=== PATIENT | female | born 1990 | race Caucasian/White ===

== ENCOUNTER 2016-05-01 14:23 | Emergency (ER) | payer MEDICAID, OTHER ==
[~2016-05-01 14:23] MED LIST: PANT20 PO; ZOFR4TAB PO
[2016-05-01 15:01] VITALS: BP 130/68; PULSE 79
[2016-05-01 15:15] VITALS: RESP 17; TEMP 99.3
[2016-05-01] MEDS ORDERED: ONDANSETRON ODT 4 MG TAB PO ONE (16:00)
[2016-05-01] MEDS ORDERED: ONDANSETRON HCL 4 MG/2 ML VIAL IV ONE (16:00)
[2016-05-01] MEDS ORDERED: LACTATED RINGER'S 1000 ML INJ 1,000 ML IV SCH (16:00)
[2016-05-01] MEDS ORDERED: PROM25TA5 PO (16:02)
[2016-05-01] MEDS ORDERED: PANT20 PO (16:03)
--- NOTE | 2016-05-01 16:03 | PD ---
HPI Chief Complaint This is a 25-year-old white female at [address] Dawkins for care presents complains of nausea vomiting today. She denies bleeding rupture the membranes or abdominal pain. heart rate is 150 Date Seen: May 01, 2016 Travel History International Travel<30 Days: No Contact w/Intl Traveler<30Days: No History of Present Illness HPI This patient is 25-year-old white female at 19 weeks sent over from reevaluation nausea vomiting today, she denies bleeding or rupture the membranes and heart tones 150 Para: 0 : 1 History Past Medical History Medical History: Denies Significant Hx Allergies-Medications (Allergen,Severity, Reaction): Coded Allergies: No Known Allergies (Unverified , 03/01/16) Home Meds Active Scripts Pantoprazole (Protonix)20 Mg Tab20 Mg PO DAILY #30 TAB Ref 0 Prov:Jed Moore MD 02/26/16 Ondansetron (Zofran)4 Mg Tab4 Mg PO Q6HR PRN (NAUSEA OR VOMITING) #20 TAB Ref 0 Prov:Deidre Brizuela DO 02/11/16 Review of Systems General / Constitutional: No: Fever, Weight Gain, Chills, Other Eyes: No: Diploplia, Blurred Vision, Visual changes, Pain, Photophobia HENT: No: Headaches, Vertigo, Lightheadedness Cardiovascular: No: Irregular Rhythm, Chest Pain or Discomfort, Palpitations, Tachycardia, Syncope, Varicosities, Edema, Cyanosis Respiratory: No: Cough, Short of Breath, Other Gastrointestinal: Nausea, Vomiting, No: Diarrhea Genitourinary: No: Decreased Urinary Output, Oliguria Musculoskeletal: No: Limited ROM, Weakness, Cramping, Edema, Pain Skin: No Rash, No Itching, No Dryness, No Lumps, No Change in Pigmentation, No Change in Nails, No Alopecia, No Lesions Neurologic: No: Weakness, Dizziness, Syncope, Focal Abnormalities, Coordination Problem, Headache, Slurred Speech, Seizures Psychiatric: No: Depression, Suicidal Ideations, Homicidal Ideation Endocrine: No: Heat Intolerance, Cold Intolerance, Polydipsia, Polyuria, Other Physical Exam Narrative GENERAL: Well-nourished, well-developed patient. SKIN: Warm and dry. HEAD: Normocephalic and atraumatic. EYES: No scleral icterus. No injection or drainage. ENT: No nasal drainage noted. Mucous membranes pink. Airway patent. NECK: Supple, trachea midline. No JVD. CARDIOVASCULAR: Regular rate and rhythm without murmurs, gallops, or rubs. RESPIRATORY: Breath sounds equal bilaterally. No accessory muscle use. BREASTS: Bilateral exam showed no masses , no retractions, no nipple discharge. ABDOMEN/GI: Abdomen soft, non-tender, bowel sounds present, no rebound, no guarding Gravid to [19-] weeks size Fundal Height: [at umbilicus-] FHT's: 150 ] EXTREMITIES: No cyanosis or edema. BACK: Nontender without obvious deformity. No CVA tenderness. NEUROLOGICAL: Awake and alert. Motor and sensory grossly within normal limits. Five out of 5 muscle strength in all muscle groups. Normal speech. Data Data Orders Vital Signs (Adult) .ON ADMISSION (05/01/16 15:05) ^ Labor Status (05/01/16 15:05) Urinalysis - C+S If Indicated (05/01/16 15:05) Lactated Ringer's 1000 Ml Inj (Lr 1000 M (05/01/16 16:00) Ondansetron Inj (Zofran Inj) (05/01/16 16:00) Ondansetron Odt (Zofran Odt) (05/01/16 16:00) MDM Interpretation(s) This patient is 19 week intrauterine with nausea and vomiting today. She is been on Protonix for this and that has helped however she is run out of medicine, she denies other problems heart tones are 150 Plan Initially our plan was to IV hydrate with IV Zofran however we've been unable to get an IV started on 2 tries. And patient states this time she feels okay she's not that nauseous she rather try oral medication that tried another IV stick so at this point we will give refill on her Protonix oral Phenergan tablets for nausea and vomiting as well as give her a dose of Zofran ODT while she's here. She'll follow-up with Dr. Dawkins for further evaluation and care Diagnosis Diagnosis: Primary Impression: Nausea and vomiting during prior to 22 weeks gestation Disposition: DISCHARGE HOME Condition: Stable Scripts Pantoprazole (Protonix)20 Mg Tab20 Mg PO DAILY #30 TAB Ref 0 Prov:Terrence Moreno II, MD 05/01/16 Promethazine (Phenergan)25 Mg Tab25 Mg PO Q6H PRN (Nausea/Vomiting) #28 TAB Ref 0 Prov:Terrence Moreno II, MD 05/01/16 Terrence Moreno II, MD May 01, 2016 16:03
== END 2016-05-01 17:00 | disposition home or self-care (01) ==
LOC: HOBED 14:23
DX: O21.0 Mild hyperemesis gravidarum (principal); Z3A.22 22 weeks gestation of pregnancy
CPT/HCPCS: 99284

== ENCOUNTER → 2016-06-19 | Emergency (ER) | payer MEDICAID ==
[~2016-06-19] VITALS: Ht 162.6 cm; Wt 94.3 kg
[~2016-06-19] MED LIST changes: +IBUP-232 PO; +LACTATED RINGER'S 1000 ML INJ 1,000 ML IV SCH; +ONDANSETRON HCL 4 MG/2 ML VIAL IV PUSH ONE; +OXYC1TAB63 PO; +PROCHLORPERAZINE INJ 10 MG/2 ML VIAL IVS ONE; +PROM25TA5 PO
--- NOTE | 2016-06-19 02:09 | PD ---
HPI Chief Complaint Lower abdominal pain Date Seen: Jun 19, 2016 Travel History International Travel<30 Days: No Contact w/Intl Traveler<30Days: No Known Affected Area: No History of Present Illness HPI This patient is 25-year-old white female at 26 weeks presents complaining of one-day history of sharp abdominal pains that are worsened with movement or sneezing coughing. Pains initially thought to be gas pains but just continue to get worse and now continuous. Also complains of some nausea but no vomiting. Patient did no medication at home for any of these problems. Denies bleeding or rupture the membranes. Baby is active heart rate tracing is within normal limits for 26 weeks, and the no regular contractions seen but there is some uterine irritability a few small irregular contractions noted Para: 0 : 1 History Past Medical History Medical History: Denies Significant Hx Social History Alcohol Use: No Tobacco Use: No Substance Abuse: No Allergies-Medications (Allergen,Severity, Reaction): Coded Allergies: No Known Allergies (Unverified , 03/01/16) Home Meds Active Scripts Pantoprazole (Protonix)20 Mg Tab20 Mg PO DAILY #30 TAB Ref 0 Prov:Terrence Moreno II, MD 05/01/16 Promethazine (Phenergan)25 Mg Tab25 Mg PO Q6H PRN (Nausea/Vomiting) #28 TAB Ref 0 Prov:Terrence Moreno II, MD 05/01/16 Ondansetron (Zofran)4 Mg Tab4 Mg PO Q6HR PRN (NAUSEA OR VOMITING) #20 TAB Ref 0 Prov:Deidre Brizuela DO 02/11/16 Review of Systems General / Constitutional: No: Fever, Weight Gain, Chills, Other Eyes: No: Diploplia, Blurred Vision, Visual changes, Pain, Photophobia HENT: No: Headaches, Vertigo, Lightheadedness Cardiovascular: No: Irregular Rhythm, Chest Pain or Discomfort, Palpitations, Tachycardia, Syncope, Varicosities, Edema, Cyanosis Respiratory: No: Cough, Short of Breath, Other Gastrointestinal: Nausea, Abdominal Pain, No: Vomiting, Diarrhea Genitourinary: No: Decreased Urinary Output, Oliguria Musculoskeletal: No: Limited ROM, Weakness, Cramping, Edema, Pain Skin: No Rash, No Itching, No Dryness, No Lumps, No Change in Pigmentation, No Change in Nails, No Alopecia, No Lesions Neurologic: No: Weakness, Dizziness, Syncope, Focal Abnormalities, Coordination Problem, Headache, Slurred Speech, Seizures Psychiatric: No: Depression, Suicidal Ideations, Homicidal Ideation Endocrine: No: Heat Intolerance, Cold Intolerance, Polydipsia, Polyuria, Other Physical Exam Narrative GENERAL: Well-nourished, well-developed patient. SKIN: Warm and dry. HEAD: Normocephalic and atraumatic. EYES: No scleral icterus. No injection or drainage. ENT: No nasal drainage noted. Mucous membranes pink. Airway patent. NECK: Supple, trachea midline. No JVD. CARDIOVASCULAR: Regular rate and rhythm without murmurs, gallops, or rubs. RESPIRATORY: Breath sounds equal bilaterally. No accessory muscle use. BREASTS: Bilateral exam showed no masses , no retractions, no nipple discharge. ABDOMEN/GI: Abdomen soft, -tender, bowel sounds present, no rebound, no guarding Gravid to [26-] weeks size Fundal Height: [26-] GENITOURINARY: External Genitalia: intact and normal in appearance BUS glands: [-] Cervix: [-] Dilatation: [-Closed thick] Effacement: [-] Thick Station: [-3] Membranes: [intact ] Uterine Contractions: [No regular contractions positive uterine irritability- ] FHT's: Category: [-1] Baseline: [144-] Reactive: [Yes for 26 weeks-] Variability: [-] Moderate Decels: [Occasional variable-] EXTREMITIES: No cyanosis or edema. BACK: Nontender without obvious deformity. No CVA tenderness. NEUROLOGICAL: Awake and alert. Motor and sensory grossly within normal limits. Five out of 5 muscle strength in all muscle groups. Normal speech. Data Data Orders Vital Signs (Adult) .ON ADMISSION (06/19/16 01:58) ^ Labor Status (06/19/16 01:58) Urinalysis - C+S If Indicated (06/19/16 01:58) Lactated Ringer's 1000 Ml Inj (Lr 1000 M (06/19/16 01:58) Fentanyl Inj (Fentanyl Inj) (06/19/16 02:00) Prochlorperazine Inj (Compazine Inj) (06/19/16 02:00) Ondansetron Inj (Zofran Inj) (06/19/16 02:00) [facility] Interpretation(s) This patient is a 25-year-old white female at [address] Dawkins for care now presents with lower abdominal pain and nausea, has no bleeding or rupture the membranes. heart rate is within normal limits 26 week she's having some uterine irritability. Pain also likely from musculoskeletal strain and pain urinalysis pending at this time but if positive she could certainly be contributing to her discomfort will be treated accordingly. Plan Plan to hydrate the patient with a liter of IV fluid give 50 faustina grams of fentanyl IV Compazine 10 mg IV and Zofran 4 mg IV. If contractility noted after that we will provide subcutaneous terbutaline when necessary, if the urinalysis indicates antibiotic therapy will provide Macrobid 100 mg by mouth twice a day a week. Patient will follow up with Dr. Dawkins if symptoms persist Diagnosis Diagnosis: Primary Impression: Abdominal pain affecting , antepartum Disposition: 01 DISCHARGE HOME Condition: Stable Terrence Moreno II, MD Jun 19, 2016 02:09
[2016-06-19 03:08] LABS: BLOOD, URINE NEG (NEG); GLUCOSE,URINE NEG (NEG); HYALINE CAST, URINE 1 /lpf (RARE); KETONE, URINE NEG (NEG); NITRITE,URINE NEG (NEG); PH, URINE 7.5 (5.0-8.5); SQUAMOUS EPITHELIAL CELL URINE 3 /hpf (0-5); URINE COLOR LIGHT-YELLOW (YELLW/STRAW)
[2016-06-19 03:29] LABS: COMMENT (UR) CULT NOT INDICATED; CULTURE IF INDICATED CULT NOT INDICATED
== END | disposition home or self-care (01) ==
LOC: HOBED 01:22
DX: O26.892 Other specified pregnancy related conditions, second trimester (principal); R10.30 Lower abdominal pain, unspecified; Z3A.26 26 weeks gestation of pregnancy
CPT/HCPCS: 81001; 96361; 96374; 96375; 99284; J2405; J3010; J7120

== ENCOUNTER → 2016-08-01 | Emergency (ER) | payer MEDICAID ==
[~2016-08-01] MED LIST changes: -LACTATED RINGER'S 1000 ML INJ 1,000 ML IV SCH; -ONDANSETRON HCL 4 MG/2 ML VIAL IV PUSH ONE; -PROCHLORPERAZINE INJ 10 MG/2 ML VIAL IVS ONE
== END | disposition home or self-care (01) ==
LOC: HOBED 09:08
DX: O99.513 Diseases of the respiratory system complicating pregnancy, third trimester (principal); J02.9 Acute pharyngitis, unspecified; Z3A.32 32 weeks gestation of pregnancy
CPT/HCPCS: 99281

== ENCOUNTER 2016-08-31 11:12 | Emergency (ER) | payer MEDICAID ==
[~2016-08-31 11:12] MED LIST changes: -IBUP-232 PO; -OXYC1TAB63 PO
--- NOTE | 2016-08-31 11:53 | PD ---
HPI Travel History International Travel<30 Days: No Contact w/Intl Traveler<30Days: No Known Affected Area: No History of Present Illness HPI This patient is a 26-year-old 1 para 0 EDC is September 24, 2016 presently at 36 weeks and 4 days she presents with chief complaint of possible rupture of membranes. States she was getting out of the tub when water came from her vagina. Irregular contractions yesterday small irregular contractions today nothing regular 3 on a 10 scale No vaginal bleeding the baby is active care with Dr. Dawkins courses been unremarkable has an appointment in 2 days No headaches no blurred vision no nausea no vomiting no problems with her urine History Past Medical History Narrative Medical No known drug allergies no major medical problems Obstetric History Obstetric History First Past Surgical History Surgical History: No Previous Surgery Family History Family History: Negative Social History Alcohol Use: No Tobacco Use: No Substance Abuse: No Allergies-Medications (Allergen,Severity, Reaction): Coded Allergies: No Known Allergies (Unverified , 03/01/16) Home Meds Active Scripts Pantoprazole (Protonix)20 Mg Tab20 Mg PO DAILY #30 TAB Ref 0 Prov:Terrence Moreno II, MD 05/01/16 Promethazine (Phenergan)25 Mg Tab25 Mg PO Q6H PRN (Nausea/Vomiting) #28 TAB Ref 0 Prov:Terrence Moreno II, MD 05/01/16 Ondansetron (Zofran)4 Mg Tab4 Mg PO Q6HR PRN (NAUSEA OR VOMITING) #20 TAB Ref 0 Prov:Deidre Brizuela DO 02/11/16 Review of Systems General / Constitutional: No: Fever, Weight Gain, Weight Loss, Chills, Other Eyes: No: Diploplia, Blurred Vision, Visual changes, Pain, Photophobia, Other HENT: No: Headaches, Vertigo, Dental Difficulties, Lightheadedness, Other Cardiovascular: No: Irregular Rhythm, Chest Pain or Discomfort, Palpitations, Tachycardia, Syncope, Varicosities, Edema, Cyanosis, Other Respiratory: No: Cough, Short of Breath, Wheezing, Other Gastrointestinal: Abdominal Pain (irregular contractions as per history of present illness) Genitourinary: Other (possible fluid from vagina) Musculoskeletal: No: Limited ROM, Weakness, Cramping, Edema, Pain, Other Neurologic: No: Weakness, Dizziness, Syncope, Focal Abnormalities, Coordination Problem, Headache, Slurred Speech, Seizures, Other Physical Exam Narrative GENERAL: Well-nourished, well-developed patient. Alert oriented 3 and cooperative in no acute distress SKIN: Warm and dry. HEAD: Normocephalic and atraumatic. EYES: No scleral icterus. No injection or drainage. Conjunctiva are pink ENT: No nasal drainage noted. Mucous membranes pink. Airway patent. NECK: Supple, trachea midline. No JVD. No thyromegaly CARDIOVASCULAR: Regular rate and rhythm without murmurs, gallops, or rubs. RESPIRATORY: Breath sounds equal bilaterally. No accessory muscle use. ABDOMEN/GI: Abdomen soft, non-tender, bowel sounds present, no rebound, no guarding gravid consistent with 36 weeks no epigastric or right upper quadrant tenderness no palpable contractions baby is active Gravid to [-] weeks size 37 Fundal Height: [-] GENITOURINARY: Speculum exam is done no fluid per the os with Valsalva no fluid in the vagina amnisure is negative External Genitalia: intact and normal in appearance BUS glands: [-] Cervix: [-] Midline Dilatation: [-] Fingertip Effacement: [-] Thick Station: [-] -3 Presentation: [-] Vertex Membranes: [intact Uterine Contractions: [-] Irregular FHT's: Category: [-] 1 Baseline: [-]140 Reactive: [-] + Accelerations up to 170 Variability: [-] Moderate [id number] variability Decels: [-] 0 EXTREMITIES: No cyanosis 2+ edema of lower extremities 1+ reflexes nonbrisk NEUROLOGICAL: Awake and alert. Motor and sensory grossly within normal limits. Five out of 5 muscle strength in all muscle groups. Normal speech. Data Data Vital Signs Reviewed: Yes (initial blood pressure 143/89 repeat 134/78) [facility] Medical Record Reviewed: No (no records available) Interpretation(s) 26-year-old at 36 weeks and 4 days Not in labor No clinical evidence of ruptured membranes Initial blood pressure elevated repeat 134/78 Category 1 tracing Plan After appropriate monitoring We'll discharge patient home kick counts Elevation of her lower extremities for decrease in the swelling Review signs of labor Keep appointment with on Thursday Diagnosis Diagnosis: Primary Impression: with 36 completed weeks gestation Additional Impressions: Suspected problem with amniotic cavity and membrane not found Swelling of lower extremity during Qualified Code: O12.03 - Swelling of lower extremity during , third trimester Disposition: 01 DISCHARGE HOME Condition: Stable Dana Scruggs MD Aug 31, 2016 11:53
== END 2016-08-31 12:12 | disposition home or self-care (01) ==
LOC: HOBED 11:12
DX: O26.93 Pregnancy related conditions, unspecified, third trimester (principal); R10.30 Lower abdominal pain, unspecified; M79.89 Other specified soft tissue disorders; Z3A.36 36 weeks gestation of pregnancy
CPT/HCPCS: 84112; 99284

== ENCOUNTER 2016-09-02 16:00 | Inpatient (IN) | payer MEDICAID ==
[~2016-09-02] VITALS: Ht 165.1 cm; Wt 111.1 kg
[2016-09-02] VITALS (13 sets, daily range): BP systolic 133–151; BP diastolic 69–91; PULSE 78–99; RESP 18; TEMP 98.1
[2016-09-02] MEDS ORDERED: NIFEdipine 10 MG CAP PO PRN ×3 (17:00→17:45)
[2016-09-02] MEDS ORDERED: LACTATED RINGER'S 1000 ML INJ 1,000 ML IV SCH (17:00)
[2016-09-02] MEDS ORDERED: CALCIUM GLUCONATE 10% 1 GM/10 ML VIAL IV PUSH PRN (17:00)
[2016-09-02] MEDS ORDERED: SODIUM CHLORIDE 0.9% FLUSH 10 ML FLUSH IV FLUSH PRN (17:00)
[2016-09-02] MEDS ORDERED: ONDANSETRON ODT 4 MG TAB PO PRN (17:00)
--- NOTE | 2016-09-02 17:11 | HHI.HP ---
HPI Chief Complaint This patient is sent over from the office for hypertension and proteinuria Date Seen: Sep 02, 2016 Travel History International Travel<30 Days: No Contact w/Intl Traveler<30Days: No Known Affected Area: No History of Present Illness HPI Spaces 26-year-old white female at 37 weeks gestation [address] by [address] Dawkins today in the office. At that time he noted elevated blood pressures of and large amount of protein in the urine. A1 with the patient sent to labor and delivery for evaluation monitoring and this and she is amy and was 3 cm and his office felt that she probably to stay and be delivered. She denies headache blurry vision spots in front of her eyes she does complain of edema and swelling in her legs, she is the baby is active. heart rate tracing is reactive and she is amy Para: 0 : 1 History Social History Alcohol Use: No Tobacco Use: No Substance Abuse: No Allergies-Medications (Allergen,Severity, Reaction): Coded Allergies: No Known Allergies (Unverified , 03/01/16) Home Meds Active Scripts Pantoprazole (Protonix)20 Mg Tab20 Mg PO DAILY #30 TAB Ref 0 Prov:Terrence Moreno II, MD 05/01/16 Promethazine (Phenergan)25 Mg Tab25 Mg PO Q6H PRN (Nausea/Vomiting) #28 TAB Ref 0 Prov:Terrence Moreno II, MD 05/01/16 Ondansetron (Zofran)4 Mg Tab4 Mg PO Q6HR PRN (NAUSEA OR VOMITING) #20 TAB Ref 0 Prov:Deidre Brizuela DO 02/11/16 Review of Systems General / Constitutional: No: Fever, Weight Gain, Chills, Other Eyes: No: Diploplia, Blurred Vision, Visual changes, Pain, Photophobia HENT: No: Headaches, Vertigo, Lightheadedness Cardiovascular: No: Irregular Rhythm, Chest Pain or Discomfort, Palpitations, Tachycardia, Syncope, Varicosities, Edema, Cyanosis Respiratory: No: Cough, Short of Breath, Other Gastrointestinal: No: Nausea, Vomiting, Diarrhea Genitourinary: No: Decreased Urinary Output, Oliguria Musculoskeletal: No: Limited ROM, Weakness, Cramping, Edema, Pain Skin: No Rash, No Itching, No Dryness, No Lumps, No Change in Pigmentation, No Change in Nails, No Alopecia, No Lesions Neurologic: No: Weakness, Dizziness, Syncope, Focal Abnormalities, Coordination Problem, Headache, Slurred Speech, Seizures Psychiatric: No: Depression, Suicidal Ideations, Homicidal Ideation Endocrine: No: Heat Intolerance, Cold Intolerance, Polydipsia, Polyuria, Other Physical Exam Narrative GENERAL: Well-nourished, well-developed patient. SKIN: Warm and dry. HEAD: Normocephalic and atraumatic. EYES: No scleral icterus. No injection or drainage. ENT: No nasal drainage noted. Mucous membranes pink. Airway patent. NECK: Supple, trachea midline. No JVD. CARDIOVASCULAR: Regular rate and rhythm without murmurs, gallops, or rubs. RESPIRATORY: Breath sounds equal bilaterally. No accessory muscle use. BREASTS: Bilateral exam showed no masses , no retractions, no nipple discharge. ABDOMEN/GI: Abdomen soft, non-tender, bowel sounds present, no rebound, no guarding Gravid to [37-] weeks size Fundal Height: [-37] GENITOURINARY: External Genitalia: intact and normal in appearance BUS glands: [-] Cervix: [-] Dilatation: [3-] Effacement: [-] Station: [-] Presentation: [vtx-] Membranes: [intact ] Uterine Contractions: [reg-] FHT's: Category: [1] Baseline: [133-] Reactive: [yes-] Variability: [-mod] Decels: [-0] EXTREMITIES: No cyanosis ,4+ pitting edema pretibial BACK: Nontender without obvious deformity. No CVA tenderness. NEUROLOGICAL: Awake and alert. Motor and sensory grossly within normal limits. Five out of 5 muscle strength in all muscle groups. Normal speech. DTRs 2+ Data Data Orders Heart CONTINUOUS (09/02/16 16:14) Cbc No Diff, Includes Plts (09/03/16 06:00) Comprehensive Metabolic Panel (09/02/16 16:14) Uric Acid (09/02/16 16:14) Urinalysis - C+S If Indicated (09/02/16 16:14) Admit To Inpatient (09/02/16 ) Vital Signs (Adult) Q5MX4,Q15MX4,Q30MX2,Q1H (09/02/16 16:58) Activity Bed Rest (09/02/16 16:58) Intake + Output Q1H (09/02/16 16:58) Notify Parameters (09/02/16 16:58) Heart CONTINUOUS (09/02/16 16:58) Urinary Catheter Management JOSEPH.Q8H (09/02/16 16:58) ^ Check Deep Tendon Reflexes Q1H (09/02/16 16:58) Lactated Ringer's 1000 Ml Inj (Lr 1000 M (09/02/16 16:58) Sodium Chloride 0.9% Flush (Ns Flush) (09/02/16 17:00) Sodium Chloride 0.9% Flush (Ns Flush) (09/02/16 21:00) Nifedipine (Procardia) (09/02/16 17:00) Nifedipine (Procardia) (09/02/16 17:30) Nifedipine (Procardia) (09/02/16 17:45) Labetalol Inj (Trandate Inj) (09/02/16 18:00) Calcium Gluconate Inj (Calcium Gluconate (09/02/16 17:00) Ondansetron Odt (Zofran Odt) (09/02/16 17:00) Assessment/Plan Assessment and Plan Since 26-year-old white female at 37 weeks sent over by the office Dr. Almonte for evaluation of the induced hypertension. He described a large amount of protein in her urine as well as elevated blood pressures and swelling. On OB ED we are seeing a lot of edema blood pressures are in the 130s to 140s over 80s to 90s I discussed the patient with Dr. mack awake wants to come see her every gets out of the office and we will likely keep her overnight and induce her in the morning or augment her labor Terrence Moreno II, MD Sep 02, 2016 17:11
[2016-09-02 17:25] LABS: BACTERIA, URINE RARE /hpf; BLOOD, URINE MOD (NEG); GLUCOSE,URINE NEG (NEG); KETONE, URINE NEG (NEG); MUCUS URINE FEW /lpf (OCC); NITRITE,URINE NEG (NEG); PH, URINE 6.5 (5.0-8.5); SQUAMOUS EPITHELIAL CELL URINE 4 /hpf (0-5); URINE COLOR YELLOW (YELLW/STRAW)
[2016-09-02 17:27] LABS: COMMENT (UR) CULT NOT INDICATED; CULTURE IF INDICATED CULT NOT INDICATED
[2016-09-02 17:47] LABS: ALT (GPT) 20 U/L (10-53); ANION GAP 9 MEQ/L (5-15); AST (GOT) 19 U/L (15-37); BICARBONATE 25.2 MEQ/L (21.0-32.0); BLOOD UREA NITROGEN 13 MG/DL (7-18); CHLORIDE 105 MEQ/L (98-107); GLOMERULAR FILTRATION RATE 96 ML/MIN (>89); POTASSIUM 3.8 MEQ/L (3.5-5.1); SODIUM (NA) 139 MEQ/L (136-145); URIC ACID 6.3 MG/DL (2.6-6.0)
[2016-09-02 17:50] LABS: ALKALINE PHOSPHATASE 203 U/L (45-117); TOTAL BILIRUBIN ADULT 0.2 MG/DL (0.2-1.0)
[2016-09-02] MEDS ORDERED: LABETALOL HCL 100 MG/20 ML VIAL IV PUSH PRN (18:00)
[2016-09-02 18:46] LABS: AUTOMATED NEUTROPHIL # 11.1 TH/MM3 (1.8-7.7); BASOPHIL % 0.2 % (0.0-2.0); EOSINOPHIL # 0.1 TH/MM3 (0-0.4); EOSINOPHIL % 0.4 % (0.0-4.0); HEMO FLAGS DIFF FINAL; LYMPH % 12.2 % (9.0-44.0); LYMPHOCYTE # 1.7 TH/MM3 (1.0-4.8); MEAN CELL VOLUME 78.5 FL (80.0-100.0); MEAN CORPUSCULAR HEMOGLOBIN 24.4 PG (27.0-34.0); MEAN CORPUSCULAR HGB CONC 31.1 % (32.0-36.0); MONO % 5.5 % (0.0-8.0); NEUT % 81.7 % (16.0-70.0); PLATELET COUNT 176 TH/MM3 (150-450); RED BLOOD COUNT 3.82 MIL/MM3 (4.00-5.30); RED CELL DISTRIBUTION WIDTH 15.1 % (11.6-17.2); WHITE BLOOD COUNT 13.6 TH/MM3 (4.0-11.0)
[2016-09-02] MEDS ORDERED: SODIUM CHLORIDE 0.9% FLUSH 10 ML FLUSH IV FLUSH SCH (21:00)
[2016-09-02] MEDS ORDERED: ZOLPIDEM TARTRATE 10 MG TAB PO ONE (21:00)
[2016-09-03] VITALS (21 sets, daily range): BP systolic 86–150; BP diastolic 73–99; PULSE 80–107; RESP 18–20; TEMP 97.7–98.2; O2SAT 99
[2016-09-03] MEDS ORDERED: LACTATED RINGER'S 1000 ML INJ 1,000 ML IV SCH ×2 (04:00→07:58)
[2016-09-03] MEDS ORDERED: OXYTOCIN 30 UNITS/NS 500ML PREMIX IV SCH ×2 (04:00→07:45)
[2016-09-03] MEDS ORDERED: PENICILLIN G POT 5,000,000 UNITS/NS 100 ML(Mini-Bag Plus) IV ONE ×2 (04:00)
[2016-09-03] MEDS ORDERED: LACTATED RINGER'S 1000 ML INJ 1,000 ML IV PRN (07:58)
--- NOTE | 2016-09-03 07:58 | HHI.PR ---
Subjective Remarks Doing well, got some sleep No h/a, scotoma. No upper abdominal pain. Good FM Objective Vital Signs Date Time Temp Pulse Resp B/P Pulse Ox O2 Delivery O2 Flow Rate FiO2 09/03/16 07:25 98.2 09/03/16 07:25 18 09/03/16 07:24 85 139/96 09/03/16 06:35 18 09/03/16 06:30 92 142/99 09/03/16 06:05 18 09/03/16 06:00 92 145/94 09/03/16 05:34 98 150/91 09/03/16 05:30 94 144/99 09/03/16 04:55 98.0 09/03/16 04:55 18 09/03/16 04:52 93 143/99 09/03/16 04:31 18 09/03/16 04:30 97 133/73 09/03/16 04:15 86 135/86 09/03/16 02:28 18 09/03/16 02:27 104 134/85 09/02/16 23:45 18 09/02/16 22:15 18 09/02/16 21:50 99 151/88 09/02/16 19:50 90 143/69 09/02/16 19:49 98.1 09/02/16 19:49 18 09/02/16 18:49 78 18 133/81 09/02/16 17:52 81 149/88 09/02/16 17:51 18 09/02/16 17:31 80 145/74 09/02/16 17:16 79 135/69 09/02/16 17:01 134/74 09/02/16 17:01 80 09/02/16 16:54 87 147/81 09/02/16 16:51 83 133/91 Result Diagram: 09/02/16 1730 09/02/16 1638 Other Results Abd is soft and NT Fundus is NT Cx is 4/60/V/-2 Ext swelling is better. Assessment and Plan Assessment and Plan IUP @ 37 WEEKS Pre eclampsia Plan to have a vaginal delivery. she is also on pitocin and her cervix is moving. Will hold off on Mg now as she is only mild pre eclampsia. Discussed plan with pt and john. Malka Dawkins MD Sep 03, 2016 07:57
[2016-09-03] MEDS ORDERED: LIDOCAINE HCL 1% 50 ML VIAL INFIL PRN (08:00)
[2016-09-03] MEDS ORDERED: MINERAL OIL 10 ML VIAL TOPICAL PRN (08:00)
[2016-09-03] MEDS ORDERED: OXYTOCIN 30 UNITS-500ML PREMIX 500 ML IV SCH (08:00)
[2016-09-03] MEDS ORDERED: SODIUM CHLORID 0.9% 500 ML INJ 500 ML IV PRN (08:00)
[2016-09-03] MEDS ORDERED: CITRIC ACID-SODIUM CITRATE LIQ 30 ML UDC PO SCH (08:00)
[2016-09-03] MEDS ORDERED: LIDOCAINE HCL 1% 50 ML VIAL I-DERMAL PRN (08:00)
[2016-09-03] MEDS ORDERED: OXYTOCIN 30 UNITS-500ML PREMIX 500 ML IV ONE ×2 (08:00→15:30)
[2016-09-03] MEDS: PENICILLIN G POT 2,500,000 UNITS/NS 100 ML IV SCH ×4 (08:00→11:56)
[2016-09-03] MEDS ORDERED: SODIUM CHLOR 0.9% 1000 ML INJ 1,000 ML IV PRN (08:18)
[2016-09-03] MEDS ORDERED: fentaNYL 2MCG-BUPIV 0.125% INJ 100 ML ONE (08:36)
[2016-09-03] MEDS ORDERED: fentaNYL 2MCG-BUPIV 0.125% 100 ML EPIDURAL SCH (10:30)
[2016-09-03] MEDS ORDERED: ePHEDrine/NS 25 MG/5 ML SYR IV PRN (10:30)
[2016-09-03] MEDS ORDERED: NO SYSTEM NARCOTICS PRN (10:30)
[2016-09-03] MEDS ORDERED: DO NOT ADMINISTER ANTICOAGULANTS PRN (10:30)
[2016-09-03] MEDS ORDERED: LIDOCAINE HCL 1.5% PF SOLN 20 ML AMP ONE (11:49)
--- NOTE | 2016-09-03 15:25 | PD.OB.DELI ---
Delivery Date: Sep 03, 2016 Anesthesia: Epidural Episiotomy: Midline Vaginal Delivery: Vacuum Presentation: Occiput anterior Nuchal Cord: None Delayed cord clamping (45 sec): Yes Infant: Male One Minute : 8 Five Minute : 8 Weight: 10/07 Placenta: Spontaneous delivery, Uterus explored +, 3 vessel cord Laceration: Episiotomy Additional Information Nice delivery of Sam... Needed the kiwi for 2 uterine contractions and then had with next push. Pt was out of energy. Aye (old labor nurse ) was present with john Lord. Malka Dawkins MD Sep 03, 2016 15:25
[2016-09-03] MEDS ORDERED: MISOPROSTOL 200 MCG TAB PR ONE (15:30)
[2016-09-03] MEDS ORDERED: ALUMINUM/MAGNESIUM/SIMETH 30 ML CUP PO PRN (15:30)
[2016-09-03] MEDS ORDERED: WITCH HAZEL 50%/GLYCERIN 12.5% 40 PAD JAR TOPICAL PRN (15:30)
[2016-09-03] MEDS ORDERED: SODIUM CHLORIDE 0.9% FLUSH 10 ML FLUSH IV FLUSH PRN (15:30)
[2016-09-03] MEDS ORDERED: ONDANSETRON ODT 4 MG TAB PO PRN (15:30)
[2016-09-03] MEDS ORDERED: oxyCODONE/ACETAMINOPHEN 5 MG/325 MG TAB PO PRN (15:30)
[2016-09-03] MEDS ORDERED: BENZOCAINE 20% TOPICAL SPRAY 60 ML CAN TOPICAL PRN (15:30)
[2016-09-03] MEDS ORDERED: ACETAMINOPHEN 325 MG TAB PO PRN (15:30)
[2016-09-03] MEDS ORDERED: DOCUSATE SODIUM 50 MG/SENNA 8.6 MG TAB PO PRN (15:30)
[2016-09-03] MEDS ORDERED: ZOLPIDEM TARTRATE 5 MG TAB PO PRN (15:30)
[2016-09-03] MEDS ORDERED: MEASLES, MUMPS, RUBELLA VACCINE 0.5 ML VIAL SQ ONE (16:00)
[2016-09-03] MEDS ORDERED: DIPHTH/TETANUS/ACEL PERTUSSIS (BOOSTER) 0.5 ML VIAL/PFS IM ONE (16:00)
[2016-09-03] MEDS: IBUPROFEN 600 MG TAB PO PRN ×2 (17:05→23:34)
[2016-09-03] MEDS ORDERED: SODIUM CHLORIDE 0.9% FLUSH 10 ML FLUSH IV FLUSH SCH (21:00)
[2016-09-04] MEDS: IBUPROFEN 600 MG TAB PO PRN ×3 (05:39→19:01)
[2016-09-04 08:30] VITALS: BP 142/98; PULSE 102; TEMP 98.7
[2016-09-04 12:00] VITALS: BP 146/106; PULSE 119; RESP 18; TEMP 98.9
[2016-09-04 12:30] VITALS: BP 157/106; PULSE 103
[2016-09-04 16:00] VITALS: BP 129/86; PULSE 84; RESP 18
--- NOTE | 2016-09-04 16:12 | HHI.OB ---
Subjective Post Day: 1 Objective Vitals/I&O Vital Signs Date Time Temp Pulse Resp B/P Pulse Ox O2 Delivery O2 Flow Rate FiO2 09/04/16 12:30 103 157/106 09/04/16 12:00 98.9 119 18 146/106 09/04/16 08:30 98.7 102 142/98 09/03/16 20:00 97.7 99 09/03/16 20:00 80 20 142/82 Objective Remarks GENERAL: Well-nourished, well-developed patient. CARDIOVASCULAR: Regular rate and rhythm without murmurs, gallops, or rubs. RESPIRATORY: Breath sounds equal bilaterally. No accessory muscle use. ABDOMEN/GI: Abdomen soft, non-tender. Fundus: Firm, non-tender at umbilicus. GENITOURINARY: Light to moderate bleeding. EXTREMITIES: No cyanosis, +2 PITTING edema TO LOWER EXTREMITIES, non-tender, without signs of DVT. Medications and IVs Current Medications Medications (Trade) Dose Ordered Sig/Yung Route Start Time Stop Time Status Last Admin (NS Flush) 2 ml BID IV FLUSH 09/03/16 21:00 (NS Flush) 2 ml UNSCH PRN IV FLUSH 09/03/16 15:30 (Tylenol) 650 mg Q4H PRN PO 09/03/16 15:30 (Motrin) 600 mg Q6H PRN PO 09/03/16 15:30 09/04/16 11:51 (Percocet 5-325 Mg) 1 tab Q4H PRN PO 09/03/16 15:30 (Percocet 5-325 Mg) 2 tab Q4H PRN PO 09/03/16 15:30 09/04/16 11:52 (Americaine 20% Top Spr) 1 spray Q4H PRN TOPICAL 09/03/16 15:30 09/03/16 19:47 (Tucks Pads) 1 applic QID PRN TOPICAL 09/03/16 15:30 09/03/16 19:47 (Clau-Colace) 2 tab Q12H PRN PO 09/03/16 15:30 (Ambien) 5 mg HS PRN PO 09/03/16 15:30 (Mag-Al Plus Susp Liq) 15 ml Q8H PRN PO 09/03/16 15:30 (Zofran Odt) 4 mg Q6H PRN PO 09/03/16 15:30 Assessment/Plan Problem List: (1) Normal vaginal delivery Plan: ROUTINE (2) Anemia Plan: WILL TREAT PP (3) Pre-eclampsia Plan: MONITOR Assessment and Plan PT DOING WELL PAIN WELL MANAGED WITH PAIN MEDICATION AND BONDING WITH INFANT WILL CONTINUE TO MONITOR BP, MAY PUT HER ON ANTIHYPERTENSIVE WILL TREAT ANEMIA OUT PATIENT ROUTINE Discharge Planning CONSIDER DC HOME TOMORROW Liliana Goodwin Sep 04, 2016 16:12
[2016-09-04 16:14] VITALS: BP 129/86; PULSE 84
--- NOTE | 2016-09-04 16:17 | HHI.DCPOC ---
Discharge Care Plan Diagnosis: (1) Normal vaginal delivery (2) Pre-eclampsia (3) Anemia Your Health Problems Are: Vaginal delivery Additional Problems WILL TAKE DAILY ORAL IRON ONCE YOU ARE NO LONGER TAKING PERCOCET WATCH FOR SIGNS OF PRE-ECLAMPSIA INCLUDING SEVERE HEADACHE, VISUAL CHANGES, FACIAL SWELLING IF THEY OCCUR RETURN TO HOSPITAL OR CALL THE OFFICE Report Symptoms to Your Doctor -Temperature above 100.5 degrees -Redness, of incision or excessive or foul smelling drainage -Unusual pain or calf pain -Increased vaginal bleeding -Painful or difficulty urinating -Feelings of extreme sadness or anxiety after 2 weeks Goals to Promote Your Health * To prevent worsening of your condition and complications * To maintain your health at the optimal level Directions to Meet Your Goals Take your medications as prescribed Follow your dietary instruction Follow activity as directed Ensure plenty of rest for recovery Drink fluids for hydration Keep your appointments as scheduled Take your immunizations and boosters as scheduled If your symptoms worsen call your PCP, if no PCP go to Urgent Care Center or Emergency Room Smoking is Dangerous to Your Health. Avoid second hand smoke Call the 24-hour crisis hotline for domestic abuse at Liliana Goodwin Sep 04, 2016 16:17
[2016-09-04] MEDS: oxyCODONE/ACETAMINOPHEN 5 MG/325 MG TAB PO PRN (19:01)
[2016-09-04 20:00] VITALS: BP 126/84; PULSE 92; RESP 20; TEMP 98.4
[2016-09-05] MEDS: IBUPROFEN 600 MG TAB PO PRN ×2 (02:58→11:52)
[2016-09-05] MEDS: oxyCODONE/ACETAMINOPHEN 5 MG/325 MG TAB PO PRN (05:44)
--- NOTE | 2016-09-05 07:39 | HHI.OB ---
Subjective Post Day: 2 Remarks Doing well, pain is well controlled Baby is good. Eating well Objective Vitals/I&O Vital Signs Date Time Temp Pulse Resp B/P Pulse Ox O2 Delivery O2 Flow Rate FiO2 09/04/16 20:00 126/84 09/04/16 20:00 98.4 92 20 09/04/16 16:14 84 129/86 09/04/16 16:00 84 18 09/04/16 16:00 129/86 09/04/16 12:30 103 157/106 09/04/16 12:00 98.9 119 18 146/106 09/04/16 08:30 98.7 102 142/98 Objective Remarks GENERAL: Well-nourished, well-developed patient. CARDIOVASCULAR: Regular rate and rhythm without murmurs, gallops, or rubs. RESPIRATORY: Breath sounds equal bilaterally. No accessory muscle use. ABDOMEN/GI: Abdomen soft, non-tender. Fundus: Firm, non-tender at umbilicus. GENITOURINARY: Light to moderate bleeding. EXTREMITIES: No cyanosis, +2 PITTING edema TO LOWER EXTREMITIES, non-tender, without signs of DVT. Medications and IVs Current Medications Medications (Trade) Dose Ordered Sig/Yung Route Start Time Stop Time Status Last Admin (NS Flush) 2 ml BID IV FLUSH 09/03/16 21:00 (NS Flush) 2 ml UNSCH PRN IV FLUSH 09/03/16 15:30 (Tylenol) 650 mg Q4H PRN PO 09/03/16 15:30 (Motrin) 600 mg Q6H PRN PO 09/03/16 15:30 09/05/16 02:58 (Percocet 5-325 Mg) 1 tab Q4H PRN PO 09/03/16 15:30 09/05/16 05:44 (Percocet 5-325 Mg) 2 tab Q4H PRN PO 09/03/16 15:30 09/04/16 11:52 (Americaine 20% Top Spr) 1 spray Q4H PRN TOPICAL 09/03/16 15:30 09/03/16 19:47 (Tucks Pads) 1 applic QID PRN TOPICAL 09/03/16 15:30 09/03/16 19:47 (Clau-Colace) 2 tab Q12H PRN PO 09/03/16 15:30 (Ambien) 5 mg HS PRN PO 09/03/16 15:30 (Mag-Al Plus Susp Liq) 15 ml Q8H PRN PO 09/03/16 15:30 (Zofran Odt) 4 mg Q6H PRN PO 09/03/16 15:30 Assessment/Plan Problem List: (1) Normal vaginal delivery Plan: ROUTINE (2) Anemia Plan: WILL TREAT PP (3) Pre-eclampsia Plan: MONITOR Assessment and Plan PT DOING WELL PAIN WELL MANAGED WITH PAIN MEDICATION AND BONDING WITH WILL CONTINUE TO MONITOR BP AT HOME AND WILL CALL FOR BP 150/90 WILL TREAT ANEMIA OUT PATIENT ROUTINE Discharge Planning CONSIDER DC HOME TOMORROW Malka Dawkins MD Sep 05, 2016 07:39
[2016-09-05] MEDS ORDERED: OXYC1TAB63 PO (07:45)
[2016-09-05] MEDS ORDERED: IBUP-232 PO (07:45)
[2016-09-05 08:00] VITALS: BP 156/99; PULSE 94; RESP 20; TEMP 98.1
--- NOTE | 2016-09-05 09:51 | HHI.DS ---
Admission Date Sep 02, 2016 at 17:40 Discharge Date: Sep 05, 2016 Admitting Diagnosis term pre-eclampsia induction Diagnosis: (1) Normal vaginal delivery Diagnosis: Principal (2) Pre-eclampsia Diagnosis: Principal (3) Anemia Diagnosis: Secondary Delivery Date: Sep 03, 2016 Vaginal Delivery: Normal : Male Brief History term pre-eclampsia induction of labor Hospital Course monitor bp routine Pt Condition on Discharge: Good Discharge Disposition: Discharge Home Discharge Instructions Diet Instructions: As Tolerated, No Restrictions Additional Diet Instructions: Drink at least 8 - 16 oz bottles of water a day Activities You Can Perform: Shower Only-No Bath, Sitz Bath Activities to Avoid: Lifting/Bending, Sexual Activity Additional Activity Instruc.: No driving until off pain medications Do not lift anything heavier than your baby in an infant carrier Follow up Referrals: SEEING EYE DOG TRAINER - 1 Week @ [facility] New Medications: Ibuprofen (Ibuprofen) 600 Mg Tab 600 MG PO Q6H Pain Management #30 TAB Oxycodone-Acetaminophen (Oxycodone-Acetaminophen) 5-325 mg Tab 1 TAB PO Q4H MODERATE PAIN #15 TAB Discontinued Medications: Ondansetron (Zofran) 4 Mg Tab 4 MG PO Q6HR PRN NAUSEA OR VOMITING #20 Ref 0 TAB Pantoprazole (Protonix) 20 Mg Tab 20 MG PO DAILY Reflux #30 Ref 0 TAB Promethazine (Phenergan) 25 Mg Tab 25 MG PO Q6H PRN Nausea/Vomiting #28 Ref 0 TAB Liliana Goodwin Sep 05, 2016 09:50
== END 2016-09-05 12:26 | disposition home or self-care (01) | DRG 775 ==
LOC: HOBED 16:00 → H2EA 17:40 → H1EA 09-03 17:28
PROVIDERS: ADMIT Obstetrics & Gynecology; ATTEND Obstetrics & Gynecology
PROC: 10D07Z6 Extraction of Products of Conception, Vacuum, Via Natural or Artificial Opening (ICD-10-PCS; principal; 2016-09-03)
PROC: 0W8NXZZ Division of Female Perineum, External Approach (ICD-10-PCS; 2016-09-03)
PROC: 00HU33Z Insertion of Infusion Device into Spinal Canal, Percutaneous Approach (ICD-10-PCS; 2016-09-03)
PROC: 3E0R3CZ (ICD-10-PCS; 2016-09-03)
DX: O14.04 Mild to moderate pre-eclampsia, complicating childbirth (principal); O99.824 Streptococcus B carrier state complicating childbirth; O99.02 Anemia complicating childbirth; O75.81 Maternal exhaustion complicating labor and delivery; O66.5 Attempted application of vacuum extractor and forceps; Z3A.37 37 weeks gestation of pregnancy; Z37.0 Single live birth
CPT/HCPCS: 59025; 80053; 81001; 84112; 84550; 85025; 86900; 86901; 99284; 99285; J2540; J2590; J7120

== ENCOUNTER 2017-01-08 10:21 | Emergency (ER) | payer MEDICAID ==
[~2017-01-08] VITALS: Ht 162.6 cm; Wt 95.0 kg
[~2017-01-08 10:21] MED LIST changes: +IBUP-232 PO; +OXYC1TAB63 PO; -PANT20 PO; -PROM25TA5 PO; -ZOFR4TAB PO
[2017-01-08 10:22] VITALS: BP 139/86; PULSE 105; RESP 16; TEMP 98.3; O2SAT 98
[2017-01-08] MEDS ORDERED: AUGM875T3 PO (10:38)
--- NOTE | 2017-01-08 10:38 | PD ---
HPI Chief Complaint: ENT Complaint Time Seen by Provider: 10:32 Travel History International Travel<30 days: No Contact w/Intl Traveler<30days: No Traveled to known affect area: No History of Present Illness HPI 26 year old female presents to the ED for evaluation of sore throat, cough, chest congestion,and right ear pressure worsening over the last two weeks. Pt has attempted over the counter medication with no relief of her symptoms. Subjective fever and chills intermittently. Denies nausea or vomiting. Cough is not productive. Denies chest pain. Denies any other symptoms at this time. PFSH Past Medical History Diabetes: No GERD: Yes Immune Disorder: No Immunizations Current: Yes ?: Not : 1 Para: 0 Miscarriage: 0 : 0 Social History Alcohol Use: No Tobacco Use: No Substance Use: No ( hx of marijuana before not at this time) Allergies-Medications (Allergen,Severity, Reaction): Coded Allergies: No Known Allergies (Unverified , 01/08/17) Reported Meds & Prescriptions Reported Meds & Active Scripts Active Augmentin (Amoxicillin-Clavulanate) 875-125 Mg Tab 1 Tab PO BID 10 Days Oxycodone-Acetaminophen 5-325 mg Tab 1 Tab PO Q4H Ibuprofen 600 Mg Tab 600 Mg PO Q6H Review of Systems Except as stated in HPI: all other systems reviewed are Neg Physical Exam Narrative GENERAL: Well nourished female pt in no acute distress SKIN: Warm and dry. HEAD: Normocephalic.No mastoid tenderness EARS: Bilateral ear canals are without erythema or edema. The right tympanic membrane is erythematous, bulging, and with large purulent effusion. The left tympanic membrane is clear, without dulness or perforation EYES: No scleral icterus. No injection or drainage. ENT: Pharynx with erythema and edema; scattered exudates. Uvula is midline. Airway is patent. NECK: Supple, trachea midline. Anterior cervical lymphadenopathy. CARDIOVASCULAR: Regular rate and rhythm without murmurs, gallops, or rubs. RESPIRATORY: Breath sounds equal bilaterally. No accessory muscle use. GASTROINTESTINAL: Abdomen soft, non-tender, nondistended. MUSCULOSKELETAL: No cyanosis, or edema. BACK: Nontender without obvious deformity. No CVA tenderness. Data Data Last Documented VS Vital Signs Date Time Temp Pulse Resp B/P (MAP) Pulse Ox O2 Delivery O2 Flow Rate FiO2 10/12/17 10:59 01/08/17 10:22 98.3 105 16 98 Room Air Orders Orders Dexamethasone Inj (Decadron Inj) (01/08/17 10:45) Group A Rapid Strep Screen (01/08/17 10:36) Ed Discharge Order (01/08/17 10:36) Strep Culture (Group A) (01/08/17 10:45) MDM Medical Decision Making Medical Screen Exam Complete: Yes Emergency Medical Condition: Yes Medical Record Reviewed: Yes Differential Diagnosis pharyngitis, strep vs viral vs viral syndrome vs pneumonia vs otitis media vs externa Narrative Course 26 year old female presents to ED for evaluation of multiple upper respiratory symptoms and ear pressure. Pt has a large effusion in the right ear. Her pharynx is erythematous with exudates. Her symptoms have persisted despite over the counter medications for two weeks. At this point, I feel the pt will benefit from oral antibiotics. I have counseled on symptom management and encouraged follow up with a primary care provider. She agrees to return immediately with acute worsening of symptoms. Diagnosis Primary Impression: Right acute suppurative otitis media Additional Impression: Exudative pharyngitis Referrals: Primary Care Physician Patient Instructions: Ear Infection (ED), General Instructions Additional Instructions: Follow-up with a primary care provider Warm salt water gargles may help to alleviate sore throat pain Tylenol or ibuprofen as directed on the package as needed for fever and/or pain Humidified air may also help to alleviate symptoms Return immediately to the emergency department with any acute worsening of symptoms Med/Other Pt SpecificInfo: Prescription(s) given Scripts Amoxicillin-Clavulanate (Augmentin) 875-125 Mg Tab 1 TAB PO BID for Infection for 10 Days, #20 TAB 0 Refills Prov: Taylor Cleaning 01/08/17 Disposition: 01 DISCHARGE HOME Condition: Stable Taylor Cleaning Jan 08, 2017 10:38
[2017-01-08] MEDS ORDERED: DEXAMETHASONE SOD PHOS 4 MG/ML VIAL IM ONE (10:45)
== END 2017-01-08 10:59 | disposition home or self-care (01) ==
LOC: NEPK 10:21
DX: H66.001 Acute suppurative otitis media without spontaneous rupture of ear drum, right ear (principal); J02.9 Acute pharyngitis, unspecified; K21.9 Gastro-esophageal reflux disease without esophagitis
CPT/HCPCS: 87081; 87880; 96372; 99284; J1100

== ENCOUNTER 2017-05-07 02:40 | Emergency (ER) | payer MEDICAID ==
[~2017-05-07 02:40] MED LIST changes: +AUGM875T3 PO
[2017-05-07 02:42] VITALS: BP 149/96; PULSE 84; RESP 18; TEMP 97.3; O2SAT 100
--- NOTE | 2017-05-07 04:52 | PD ---
HPI Chief Complaint: GI Complaint Time Seen by Provider: 03:42 Travel History International Travel<30 days: No Contact w/Intl Traveler<30days: No Traveled to known affect area: No History of Present Illness HPI Patient is a 26-year-old female who for 10 day has had a cough congestion. she said that a few days ago she went to urgent care and they put her on prednisone and guaifenesin. She said she is not improved and she still coughing feel short of breath and now complains of mid thoracic back pain she says her symptoms continue and she is now out of the medications that she was prescribed. No history of reactive airway no history of asthma PFSH Past Medical History Diabetes: No GERD: Yes Immune Disorder: No Immunizations Current: Yes ?: Not : 1 Para: 0 Miscarriage: 0 : 0 Past Surgical History Surgical History: No Previous Surgery Social History Alcohol Use: No Tobacco Use: No Substance Use: No ( hx of marijuana) Allergies-Medications (Allergen,Severity, Reaction): Coded Allergies: No Known Allergies (Unverified Adverse Reaction, Unknown, 05/07/17) Reported Meds & Prescriptions Reported Meds & Active Scripts Active Azithromycin 250 Mg Tab 250 Mg PO DIRECTED Take 2 tabs (500 mg) on day 1 then 1 tab daily x 4 days. Guaifenesin AC Liq (Guaifenesin-Codeine Liq) 100-10 Mg/5 Ml Syrp 10 Ml PO Q6H PRN Review of Systems Except as stated in HPI: all other systems reviewed are Neg Respiratory: Positive: Cough, Shortness of Breath, Wheezing Physical Exam Narrative GENERAL: Coughing. Dry cough no phlegm produced otherwise nontoxic-appearing awake alert nonseptic SKIN: Warm and dry. HEAD: Atraumatic. Normocephalic. EYES: Pupils equal and round. No scleral icterus. No injection or drainage. ENT: No nasal bleeding or discharge. Mucous membranes pink and moist. NECK: Trachea midline. No JVD. CARDIOVASCULAR: Regular rate and rhythm. RESPIRATORY: No accessory muscle use. Clear to auscultation. Breath sounds equal bilaterally. Lungs are completely clear in all singletary there is no wheeze GASTROINTESTINAL: Abdomen soft, non-tender, nondistended. Hepatic and splenic margins not palpable. MUSCULOSKELETAL: Extremities without clubbing, cyanosis, or edema. No obvious deformities. NEUROLOGICAL: Awake and alert. No obvious cranial nerve deficits. Motor grossly within normal limits. Five out of 5 muscle strength in the arms and legs. Normal speech. PSYCHIATRIC: Appropriate mood and affect; insight and judgment normal. Data Data Last Documented VS Orders Orders Group A Rapid Strep Screen (05/07/17 04:34) Influenzae A/B Antigen (05/07/17 04:34) Strep Culture (Group A) (05/07/17 04:45) Ed Discharge Order (05/07/17 05:46) Electrocardiogram (05/07/17 ) MDM Medical Decision Making Medical Screen Exam Complete: Yes Emergency Medical Condition: Yes Differential Diagnosis bronchitis viral recurrent vs flu or strep or other corono or rhino viraus causing symptoms of bronchitis sinusitis Narrative Course Exam shows no signs of pneumonia no signs of bronchitis strep is negative flu is negative I will give her Robitussin-AC and a Z-Erik to follow-up as an outpatient Diagnosis Primary Impression: Acute viral bronchiolitis Patient Instructions: Acute Bronchitis in Children (ED), General Instructions Scripts Azithromycin (Azithromycin) 250 Mg Tab 250 MG PO DIRECTED for Infection, #6 TAB 0 Refills Take 2 tabs (500 mg) on day 1 then 1 tab daily x 4 days. Prov: Ramses Edgar MD 05/07/17 Guaifenesin-Codeine Liq (Guaifenesin AC Liq) 100-10 Mg/5 Ml Syrp 10 ML PO Q6H Y for COUGH, #1 BOTTLE 0 Refills Prov: Ramses Edgar MD 05/07/17 Disposition: 01 DISCHARGE HOME Condition: Good Ramses Edgar MD May 07, 2017 04:52
[2017-05-07] MEDS ORDERED: GUAISYP4 PO (05:35)
[2017-05-07] MEDS ORDERED: AZIT250T3 PO (05:36)
--- NOTE | 2017-05-07 20:14 | EKG ---
Date Performed: 05/07/2017 Time Performed: 04:00:56 PTAGE: 26 years EKG: Sinus rhythm WITH MARKED SINUS ARRHYTHMIA WITH SHORT TX INTERVAL BORDERLINE ECG NO PREVIOUS TRACING DOCTOR: Emanuel Aiken Interpretating Date/Time 05/07/2017 20:13:30
== END 2017-05-07 06:04 | disposition home or self-care (01) ==
LOC: NEPE 02:40
DX: J21.9 Acute bronchiolitis, unspecified (principal)
CPT/HCPCS: 87081; 87804; 87880; 93005; 99283